=== PATIENT | male | born 1960 | race Caucasian/White ===

== ENCOUNTER 2024-05-19 23:20 | Emergency (ER) | payer MEDICAID ==
[~2024-05-19] VITALS: Ht 177.8 cm; Wt 88.5 kg
[2024-05-19 23:24] VITALS: BP 152/106; PULSE 82; RESP 16; TEMP 98.1; O2SAT 98
[2024-05-19] MEDS: ENALAPRIL 5 MG TAB PO ONE (23:41)
[2024-05-19 23:49] VITALS: BP 146/91; PULSE 80; RESP 18; TEMP 98; O2SAT 99
== END 2024-05-19 23:49 ==
LOC: MED 23:20
DX: I10 Essential (primary) hypertension (principal); E11.9 Type 2 diabetes mellitus without complications; J45.909 Unspecified asthma, uncomplicated
CPT/HCPCS: 82948; 99283